=== PATIENT | male | born 1995 | race African-American/Black ===

== ENCOUNTER 2023-09-15 12:19 | Emergency (ER) | payer SELFPAY ==
[~2023-09-15] VITALS: Ht 177.8 cm; Wt 86.0 kg
[2023-09-15 12:28] VITALS: BP 146/65; PULSE 91; RESP 17; TEMP 98.9; O2SAT 100
[2023-09-15] MEDS: ACETAMINOPHEN 325MG TABLET PO STA (14:50)
== END 2023-09-15 16:36 | disposition home or self-care (01) ==
LOC: ER 12:19
DX: R51.9 Headache, unspecified (principal); Z20.822 Contact with and (suspected) exposure to COVID-19
CPT/HCPCS: 87426; 99284